=== PATIENT | female | born 1960 | race Caucasian/White ===

== ENCOUNTER 2025-01-07 12:10 | Emergency (ER) | payer MEDICARE, OTHER | END 2025-01-07 13:09 | disposition home or self-care (01) | LOC: MW.ED 12:10 | DX: H66.92 Otitis media, unspecified, left ear (principal); F17.200 Nicotine dependence, unspecified, uncomplicated; Z88.0 Allergy status to penicillin | CPT/HCPCS: 99282 ==

== ENCOUNTER 2025-01-12 09:38 | Emergency (ER) | payer MEDICARE, OTHER ==
[2025-01-12] MEDS: Lidocaine 2% Viscous Solution 15 ML UD PO ONE (10:01)
== END 2025-01-12 10:29 | disposition home or self-care (01) ==
LOC: MW.ED 09:38
DX: H92.02 Otalgia, left ear (principal); Z88.0 Allergy status to penicillin
CPT/HCPCS: 99282; A9270; 99283